=== PATIENT | female | born 1950 | race African-American/Black ===

== ENCOUNTER → 2018-12-04 | Outpatient (CLI) | payer BC ==
[~2018-12-04] MED LIST: ASPIR 8181 MG PO; COZAAR 25 MG TA25 M1 PO; PROTONIX40 M1 PO; SIMVASTATIN40 MG PO; TOPROL XL100 MG PO
--- NOTE | 2018-12-04 11:58 | 2DMMODE ---
[facility] [place] [address] 2 D/M-MODE ECHOCARDIOGRAM Name: DELON ISRAEL Room #: REG CL [facility]#: [id number] ������������� Admission: 12/04/18 ������������� Attend Phys: Jayy Cantu MD Discharge: ��� ������������� ��� Date of : 52 Date of Service: 12/04/18 1158 �� Report #: [id number] �������� ��������������������������������������������[id number] THIS REPORT FOR: //name// APPROVED REPORT Study performed: 12/04/2018 10:24:16 EXAM: Comprehensive 2D, Doppler, and color-flow Echocardiogram Patient Location: Out-Patient Room #: Echo lab 1 Status: routine BSA: 1.69 HR: 67 bpm BP: 212/88 mmHg Rhythm: NSR Other Information Study Quality: Adequate Indications Chest Pain 2D Dimensions IVC: 17.00 mm Volumes Left Atrial Volume (Systole) LA ESV Index: 32.00 mL/m2 Tricuspid Valve PA Pressure: 27.00 mmHg Left Ventricle The left ventricle is normal size. There is normal LV segmental wall motion. There is normal left ventricular wall thickness. The left ventricular systolic function is normal. The left ventricular ejection fraction is within the normal range. LVEF is 60-65%. Grade II - pseudonormal filling dynamics. Right Ventricle The right ventricle is normal size. The right ventricular systolic function is normal. Atria The left atrium size is normal. The right atrium size is [facility] [address] [place] [address] 2 D/M-MODE ECHOCARDIOGRAM Name: DELON ISRAEL Room #: REG Oswaldo#: [id number] ������������� Admission: 12/04/18 ������������� Attend Phys: Jayy Cantu MD Discharge: ��� ������������� ��� Date of : 52 Date of Service: 12/04/18 1158 �� Report #: [id number] �������� ��������������������������������������������[id number] normal. Aortic Valve The aortic valve is normal in structure. No aortic regurgitation is present. There is no aortic valvular stenosis. Mitral Valve The mitral valve is normal in structure. Moderate mitral regurgitation. No evidence of mitral valve stenosis. Tricuspid Valve The tricuspid valve is normal in structure. There is mild tricuspid regurgitation. Estimated PAP 27 mmHg. There is no pulmonary hypertension. Pulmonic Valve The pulmonary valve is normal in structure. There is no pulmonic valvular regurgitation. Great Vessels The aortic root is normal in size. IVC is normal in size and collapses >50% with inspiration. Pericardium There is no pericardial effusion. <Conclusion> The left ventricle is normal size. There is normal left ventricular wall thickness. The left ventricular systolic function is normal. Grade II - pseudonormal filling dynamics. The right ventricle is normal size. The left atrium size is normal. The aortic valve is normal in structure. Moderate mitral regurgitation. There is mild tricuspid regurgitation. Estimated PAP 27 mmHg. ��������������������������������������������� <ELECTRONICALLY SIGNED> ���������������������������������������� By: Jayy Cantu MD ��������������������������������������������� 12/04/18 1158 1158 1158 Jayy Cantu MD /INF
== END ==
LOC: CV 06:31
DX: I08.1 Rheumatic disorders of both mitral and tricuspid valves (principal); I99.8 Other disorder of circulatory system; I10 Essential (primary) hypertension; E78.5 Hyperlipidemia, unspecified; Z86.73 Personal history of transient ischemic attack (TIA), and cerebral infarction without residual deficits

== ENCOUNTER 2018-12-06 05:36 | Observation (INO) | payer BC ==
[~2018-12-06] VITALS: Ht 152.4 cm; Wt 73.5 kg
[2018-12-06] MEDS ORDERED: COZAAR 25 MG TA25 M1 PO (07:06)
[2018-12-06] MEDS ORDERED: TOPROL XL100 MG PO (07:06)
[2018-12-06] MEDS ORDERED: PROTONIX40 M1 PO (07:06)
[2018-12-06] MEDS ORDERED: SIMVASTATIN40 MG PO (07:07)
[2018-12-06] MEDS ORDERED: ASPIR 8181 MG PO (07:07)
[2018-12-06 07:08] VITALS: BP 183/84
[2018-12-06 07:13] LABS: HEMATOCRIT 37.5 % (37.0-47.0); HEMOGLOBIN 11.7 gm/dL (12.0-15.0); MCHC 31.3 g/dL (28.0-37.0); MCV 73.3 fL (80.0-100.0); RBC 5.11 mil/uL (4.20-5.00); RDW 15.5 % (10.5-14.5); WBC 5.9 thou/uL (4.0-11.0)
[2018-12-06 07:24] LABS: CALCIUM 9.2 mg/dL (8.5-10.1); CREATININE 0.9 mg/dL (0.6-1.0); POTASSIUM 4.2 mmol/L (3.5-5.1)
--- NOTE | 2018-12-06 08:22 | EKG ---
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: Syd OLVERA : 1950 Requested By: Jayy Cantu Order Number: [id number] MD: Pasquale Nogueira Measurements Intervals [place] Rate: 55 P: 41 UT: 194 QRS: 7 QRSD: 92 T: 50 QT: 463 QTc: 443 Interpretive Statements Sinus rhythm Abnormal R-wave progression, early transition No previous ECG available for comparison Electronically Signed On 12-06-2018 8:22:35 CDT by Pasquale Nogueira [email or web address] ��������������������������������������������� <ELECTRONICALLY SIGNED> ���������������������������������������� By: Pasquale Nogueira MD, [facility] ��������������������������������������������� 12/06/18821 2 2 Pasquale Nogueira MD, FACC /EPI
--- NOTE | 2018-12-06 12:20 | CATHLAB ---
[facility] [address] [place] [address] INVASIVE PROCEDURE REPORT Name: DELON ISRAEL Room #: REG CHITO ChaconReji#: [id number] ������������� Admission: 12/06/18 ������������� Attend Phys: Jayy Cantu MD Discharge: ��� ������������� ��� Date of : 52 Date of Service: 12/06/18 1220 �� Report #: [id number] �������� ��������������������������������������������[id number] THIS REPORT FOR: //name// APPROVED REPORT Study performed: 12/06/2018 07:39:09 Patient Details Patient Status: Out-Patient Room #: The patient is a 68 year-old female Event Personnel Jayy Cantu Vessel Specialist, Mesfin Cummings RN RN, Derrick Musa RTR Jose G Mallory Roberta Monitor Procedures Performed Art Access - R femoral artery* Left Heart Cath w/LT VGram [id number] LHCLV 36003 Initial Mod Sed Same Phys/QHP Gr5y 409348 94445 Mod Sed Same Phys/QHP Ea 622526 DARRIN Place w/wo Plasty Single CIRC 733415 Hemostasis w/ Mynx Indication Positive stress test, Chest pain Risk Factors Cerebrovascular Disease, Hypercholesterolemia, Hypertension, Diabetes Procedure Narrative The Right Groin^ was infiltrated with subcutaneous anesthesia. A PINNACLE 4FR Sheath #[id number] sheath was inserted into the RFA 4F^. Coronary angiography was performed using coronary diagnostic catheters. The right coronary system was accessed and visualized with a JR4 catheter. The left coronary system was accessed and visualized with a JL4 catheter. The left ventricle was accessed and visualized with a ANGLE PIG catheter. Left ventriculogram was performed in 30 degree projection. Closure device was deployed with a Fr MYNXGRIP 6/7F #[id number]. There was no hematoma. Intraoperative Conscious Sedation Sedation start time: 819 Case end Time: 914 Fentanyl 100 mcg Versed 2 mg Fluoro Time: 10.50 minutes Dose: DAP 7139.00 cGycm2 1733 mGy [facility] [place] [address] INVASIVE PROCEDURE REPORT Name: DELON ISRAEL Room #: REG [facility]#: [id number] ������������� Admission: 12/06/18 ������������� Attend Phys: Jayy Cantu MD Discharge: ��� ������������� ��� Date of : 52 Date of Service: 12/06/18 1220 �� Report #: [id number] �������� ��������������������������������������������[id number] Contrast Type and Amount: Omnipaque 165 ml Coronary Angiography The patient's coronary anatomy is right dominant. Diagnostic Cath Left Main This is a large caliber vessel, patent with no flow-limiting lesions. LAD This is a moderate size caliber vessel, traversing the anterior wall and wrapping around the apex. There is mild to moderate diffuse disease in the mid segment, 30-40%. Diagonal 1 This is a small-caliber vessel, patent with no flow-limiting lesions. Diagonal 2 This is a small-caliber vessel, patent with no flow-limiting lesions. Circumflex There is a severe stenosis in the proximal segment, 90%. OM1 This is a moderate size caliber vessel, with a moderate stenosis in the proximal segment, 40%. OM2 This is a small-caliber vessel, patent with no flow-limiting lesions. OM3 This is a small-caliber vessel, patent with no flow-limiting lesions. Right Coronary This is a dominant vessel with mild disease in the mid segment, 20%. R PDA This is a moderate size caliber vessel, patent with no flow-limiting lesions. RPLV This is a moderate size caliber vessel, patent with no flow-limiting lesions. Left Ventriculography The left ventricle is normal in size with normal contractility. The left ventricular ejection fraction is estimated to be 60%. Hemodynamics The aortic pressure is 179/78 mmHg with a mean of 85 mmHg. The left ventricular pressure is 169/10 mmHg with a mean of mmHg. The left ventricular end diastolic pressure is 27 mmHg. PCI Technique Lesion Percutaneous coronary intervention was performed on the .CIRC. The lesion stenosis prior to intervention was 90% with HETAL 3 flow. A VISTA 6FR XB 3.5 #[id number] Guide Catheter was used to engage the ostium. A Luge Wire .014 x 182CM #[id number] Interventional Guidewire was used to cross the lesion. [facility] [address] [place] [address] INVASIVE PROCEDURE REPORT Name: DELON ISRAEL Room #: REG Geovani#: [id number] ������������� Admission: 12/06/18 ������������� Attend Phys: Jayy Cantu MD Discharge: ��� ������������� ��� Date of : 52 Date of Service: 12/06/18 1220 �� Report #: [id number] �������� ��������������������������������������������[id number] BALLOON DILATION A Balloon catheter MINI TREK RX 2.0 X 12 #[id number] was inserted and inflated up to 8.00atm for 16seconds. STENT DEPLOYMENT A stent RESOLUTE KATARINA RX 2.5 X 12 #[id number] was inserted and inflated up to 12.00atm for 26seconds. POST STENT DEPLOYMENT BALLOON DILATION A Balloon catheter Euphora NC RX 2.5 x 6 #[id number] was inserted and inflated up to 15.00atm for 20seconds. Additional Inflation: 18.00atm for 17seconds. Final angiography reveals 0 % stenosis with HETAL 3 flow. Conclusion 1. Successful insertion of a drug-eluting stent into the proximal left circumflex artery. 2. Mild to moderate disease in the LAD and OM1. 3. Normal LV systolic function. 4. Recommend dual antiplatelet therapy and aggressive risk factor management. ��������������������������������������������� <ELECTRONICALLY SIGNED> ���������������������������������������� By: Jayy Cantu MD ��������������������������������������������� 12/06/18 1220 19 19 Jayy Cantu MD /INF
--- NOTE | 2018-12-06 18:34 | NUR ---
PATIENT TO UNIT FROM CIGARETTE AND FILTER CHIEF INSPECTOR BY CART, REPORT FROM BEVERLEY HODGE. VSS. NSR PER TELE. NO COMPLAINTS. RIGHT GROIN SITE CDI, SOFT, AND NONTENDER. MULTIPLE FAMILY AT BEDSIDE. PATIENT HAS BEEN IN HOLDING ALL DAY. REPORT TO ONCOMING NIGHT NURSE BEVERLEY KOWALSKI.
[2018-12-06 18:50] VITALS: BP 170/63
[2018-12-06 20:30] VITALS: BP 189/86
[2018-12-07 00:45] VITALS: BP 168/81
[2018-12-07 04:45] VITALS: BP 179/66
--- NOTE | 2018-12-07 04:57 | NUR ---
ASSUMED PT CARE AT 1900 WITH NO SIGN OF DISTRESS NOTED IN PT. PT IS ALERT AND ORIENTED. FAMILY AT BEDSIDE. PT HAD A CATH DONE. RIGHT GROIN SITE INTACT. VITAL SIGNS STABLE. ELEVATED BLOOD PRESUURE NOTED. MEDICATION ADMINISTERED TO PT. ASSESSMENT COMPLETED AND DOCUMENTED. PT STABLE THROUGHOUT THE NIGHT. DENIES ANY PAIN. CONTINUE TO MONITOR
[2018-12-07 05:33] LABS: HEMOGLOBIN 11.4 gm/dL (12.0-15.0); MCH 22.9 pg (26.0-34.0); MCHC 31.6 g/dL (28.0-37.0); MCV 72.5 fL (80.0-100.0); RBC 4.97 mil/uL (4.20-5.00); RDW 15.2 % (10.5-14.5); WBC 6.9 thou/uL (4.0-11.0)
[2018-12-07 05:45] LABS: ALBUMIN 3.6 g/dL (3.4-5.0); CALCIUM 9.1 mg/dL (8.5-10.1); CREATININE 0.9 mg/dL (0.6-1.0); POTASSIUM 3.8 mmol/L (3.5-5.1); TOTAL BILIRUBIN 0.2 mg/dL (<0.1-1.0); TOTAL PROTEIN 7.1 g/dL (6.4-8.2)
[2018-12-07] MEDS ORDERED: EFFIENT10 MG PO (08:07)
[2018-12-07] MEDS ORDERED: ATORVASTATIN CA80 MG PO (08:08)
[2018-12-07] MEDS ORDERED: TOPROL XL100 MG PO (08:11)
[2018-12-07 08:22] VITALS: BP 169/59
--- NOTE | 2018-12-07 08:38 | EKG ---
[address] [place] [address] ELECTROCARDIOGRAM REPORT Name: DELON ISRAEL Room #: 214-P [facility] M.R.#: [id number] ������������������ Admission: 12/06/18 ������������������ Attend Phys: Jayy Cantu MD Discharge: ������������������ Date of : 52 Report #: [id number] ����������������������������������������������������������������� [id number] THIS REPORT FOR: //name// [facility] Test Date: 2018-12-06 Test Time: 10:24:41 Pat Name: DELON ISRAEL Department: Room: 214 Gender: F Credit Card Specialist: Syd OLVERA : 1950 Requested By: Jayy Cantu Order Number: [id number] MD: Pasquale Nogueira Measurements Intervals [place] Rate: 56 P: 46 MS: 204 QRS: 13 QRSD: 93 T: 88 QT: 481 QTc: 465 Interpretive Statements Sinus rhythm Nonspecific ST and T wave abnormality Compared to ECG 12/06/2018 07:23:46 T-wave abnormality now present Electronically Signed On 12-07-2018 8:38:43 CDT by Pasquale Nogueira [email or web address] ��������������������������������������������� <ELECTRONICALLY SIGNED> ���������������������������������������� By: Pasquale Nogueira MD, [facility] ��������������������������������������������� 12/07/18 0838 1024 1024 Pasquale Nogueira MD, [facility] /EPI
--- NOTE | 2018-12-07 08:39 | EKG ---
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: Syd OLVERA : 1950 Requested By: Jayy Cantu Order Number: [id number] MD: Pasqulae Nogueira Measurements Intervals [place] Rate: 55 P: 41 [place]: 204 QRS: 7 QRSD: 89 T: 95 QT: 482 QTc: 461 Interpretive Statements Sinus rhythm Nonspecific ST and T wave abnormality Compared to ECG 12/06/2018 07:23:46 No significant change was found Electronically Signed On 12-07-2018 8:39:28 CDT by Pasquale Nogueira [email or web address] ��������������������������������������������� <ELECTRONICALLY SIGNED> ���������������������������������������� By: Pasquale Nogueira MD, [facility] ��������������������������������������������� 12/07/18 0839 1115 1115 Pasquale Nogueira MD, [facility] /EPI
--- NOTE | 2018-12-07 09:04 | EKG ---
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 : 1950 Requested By: Jayy Cantu Order Number: [id number] MD: Pasquale Nogueira Measurements Intervals [place] Rate: 60 P: 43 CT: 197 QRS: 6 QRSD: 87 T: 57 QT: 465 QTc: 465 Interpretive Statements Sinus rhythm Nonspecific ST segment abnormality Compared to ECG 12/06/2018 07:23:46 No significant changes Electronically Signed On 12-07-2018 9:04:09 CDT by Pasquale Nogueira [email or web address] ��������������������������������������������� <ELECTRONICALLY SIGNED> ���������������������������������������� By: Pasquale Nogueira MD, [facility] ��������������������������������������������� 12/07/18903 0739 8 Pasquale Nogueira MD, FACC /EPI
[2018-12-07 09:15] VITALS: BP 169/59
--- NOTE | 2018-12-07 10:20 | NUR ---
ASSESSMENT CHARTED - MEDS PER MAR - NO CO'S OF PAIN OR NASUEA. VENECIA DIET AND FLUIDS. UP AD RIKA IN ROOM. SEEN BY THE CARDIAC REHAB NURSE THIS AM. PT HOME - INSTRUCTION IN REAGARDS TO CARE/ FOLLOW UP / MEDS GIVEN TO PATIENT AND DAUGHTER - STATED UNDERSTANDING OF INSTRUCTION GIVEN. MONIOT AND IV REMOVED PRIOR TO D/C. NO CO'S AT TIME OF DISCHARGE.
--- NOTE | 2018-12-08 08:32 | D ---
[facility] [place] [address] DISCHARGE SUMMARY Name: DELON ISRAEL Room #: 214-P [facility] Maggie Olivo#: [id number] Admission: 12/06/18 ������������������ Attend Phys: Jayy Cantu MD Discharge: 12/07/18 ������������������ Date of : 52 Report #: [id number] THIS REPORT FOR: //name// CC: Janelle Cantu DATE OF SERVICE: 12/07/2018 FINAL DIAGNOSES: 1. Unstable angina, status post percutaneous coronary intervention. 2. Hypertension. 3. Hypercholesterolemia. 4. Borderline diabetes. 5. Gastroesophageal reflux disease. HOSPITAL COURSE: Please see the original H and P for full details. The patient presented with chest pain with exertion. She had an abnormal nuclear stress test. On cardiac catheterization, she was found to have a severe occlusion in the proximal left circumflex artery, undergoing placement of a drug-eluting stent. There was [id number] disease in the mid LAD, OM1 and RCA. She remained stable overnight and will be discharged home. Her pressure was elevated. The metoprolol dose was increased to 100 mg daily. DISCHARGE MEDICATIONS: She will continue on aspirin 81 mg, Protonix 40 mg daily, losartan 100 mg daily. New statin medication is atorvastatin 40 mg daily and Effient 10 mg daily. FOLLOWUP: She is given a followup appointment in a few weeks. ��������������������������������������������� <ELECTRONICALLY SIGNED> ���������������������������������������� By: Jayy Cantu MD ��������������������������������������������� 12/08/18 0832 0816 1226 MD maral Lu
== END 2018-12-07 09:37 | disposition home or self-care (01) ==
LOC: CATH 05:36 → 2N 18:35 → CATH 18:36 → ENTRNSPT 12-07 09:28 → EDTRNSPTSTS 12-07 09:30 → 2N 12-07 09:37
PROVIDERS: ADMIT Internal Medicine Cardiovascular Disease
DX: I25.110 Atherosclerotic heart disease of native coronary artery with unstable angina pectoris (principal); I10 Essential (primary) hypertension; E78.00 Pure hypercholesterolemia, unspecified; E11.9 Type 2 diabetes mellitus without complications; K21.9 Gastro-esophageal reflux disease without esophagitis; Z79.899 Other long term (current) drug therapy
CPT/HCPCS: 10081

== ENCOUNTER 2019-07-01 19:43 | Inpatient (IN) | payer BC, OTHER ==
[~2019-07-01] VITALS: Ht 152.4 cm; Wt 72.1 kg
[~2019-07-01 19:43] MED LIST changes: +ATORVASTATIN CA80 MG PO; +EFFIENT10 MG PO
[2019-07-01 19:48] VITALS: BP 238/114
[2019-07-01] MEDS ORDERED: IMDUR 30 MG TAB30 M1 PO (20:00)
[2019-07-01 20:07] LABS: ABSOLUTE NEUTROPHILS 2.7 thou/uL (1.4-8.2); BASOPHILS 0.8 % (0.0-2.0); EOSINOPHILS 1.7 % (0.0-3.0); HEMOGLOBIN 12.6 gm/dL (12.0-15.0); LYMPHOCYTES 44.8 % (24.0-44.0); MCHC 31.5 g/dL (28.0-37.0); MCV 72.8 fL (80.0-100.0); MONOCYTES 9.2 % (1.0-8.0); PLATELET COUNT 328 thou/uL (150-400); POLYS 43.5 % (36.0-66.0); RBC 5.49 mil/uL (4.20-5.00); RDW 15.6 % (10.5-14.5); WBC 6.1 thou/uL (4.0-11.0)
[2019-07-01 20:15] LABS: CALCIUM 9.9 mg/dL (8.5-10.1); CREATININE 0.9 mg/dL (0.6-1.0); POTASSIUM 3.3 mmol/L (3.5-5.1)
[2019-07-01 20:23] LABS: TROPONIN-I 0.19 ng/mL (<0.06)
[2019-07-01 20:43] LABS: HYPOCHROMASIA 1+; MICROCYTES 1+; PLATELET ESTIMATE NORMAL
--- NOTE | 2019-07-01 21:35 | NUR ---
PT C/O NAUSEA AND FEELING WEAK AND LIKE SHE WAS GOING TO PASS OUT. SBP DROPPED FROM 200S TO 140S AFTER STARTING NITRO GTT AT 10ML/HR. NOTIFIED DR FLOYD. NITRO GTT RATE CHANGED TO 2.5ML/HR PER . WILL CONTINUE TO MONITOR.
[2019-07-01 21:36] LABS: INR 1.1; PROTIME 10.8 Seconds (9.3-11.4)
--- NOTE | 2019-07-01 22:00 | NUR ---
PT STATES SHE IS FEELING BETTER NOW. DENIES ANY MORE N/V. STATES HER CHEST PAIN IS GONE. BP IMPROVING. NITRO GTT REMAINS AT 2.5ML/HR. HEPARIN GTT INFUSING PER PROTOCOL. WILL CALL REPORT TO FLOOR RN.
--- NOTE | 2019-07-01 22:09 | NUR ---
REPORT CALLED TO FLOOR RNSARAH.
[2019-07-01 22:15] VITALS: BP 173/75
[2019-07-01 22:33] LABS: CHOLESTEROL 179 mg/dL (<200); HDL CHOLESTEROL 62 mg/dL (>40); LDL CHOLESTEROL 102 mg/dL (<100); MAGNESIUM 1.8 mg/dL (1.8-2.4); TC:HDL 2.9 Ratio (Not establshd); TRIGLYCERIDE 77 mg/dL (<150); VLDL 15 mg/dL (<40)
[2019-07-01 22:45] LABS: SERUM ASSESSMENT Clear
[2019-07-01 23:08] VITALS: BP 181/97
[2019-07-02] VITALS (36 sets, daily range): BP systolic 101–163; BP diastolic 49–98
--- NOTE | 2019-07-02 05:50 | NUR ---
PT ADMITTED TO UNIT AROUND 2300. PT C/O CHEST PAIN. MORPHINE AND OXYGEN PROVIDED WITH PARTIAL RELIEF. PT STATES SOA ONLY OCCURS WITH EXERTION NASAL CANNULA PROVIDED. PT IS ABLE TO WALK TO BATHROOM WITH MINIMAL ASSISTANCE. PT ON NITRO AND HEPARIN DRIP THAT WERE BOTH STARTED IN EMERGENCY ROOM. PER PHYSICIAN NOTES PT WILL HAVE POSSIBLE PROCEDURE TOMORROW. PT IS AOX4. WILL CONTINUE TO UPDATE PHYSICIAN ON CHANGES THRU SHIFT.
--- NOTE | 2019-07-02 10:54 | NUR ---
PT TRANSFER FROM [address] [place] [address] AFTER HAVING A HEART CATH DRESSSING TO RIGHT GROIN IS DRY AND INTACT. ON 2 LITERS NASAL OXYGEN. KEEPING RIGHT LEG STRAIGH. SOME NAUSEA NOTED. VITALS ARE STABLE. DENIES ANY CHEST PAIN AT THIS TIME. REMAINS ON NITRO DRIP AND CARDENE DRIP AT THIS TIME IN THE ICU. SINUS BRADYCARDIA AT RATE OF 55 NOTED. WILL CONTINUE TO ASSESS AND MONITOR PER NURSING AT THIS TIME
[2019-07-02 10:57] LABS: CALCIUM 9.9 mg/dL (8.5-10.1); CREATININE 0.8 mg/dL (0.6-1.0); POTASSIUM 4.1 mmol/L (3.5-5.1)
[2019-07-02 11:03] LABS: ALBUMIN 4.4 g/dL (3.4-5.0); TOTAL BILIRUBIN 0.4 mg/dL (<0.1-1.0); TOTAL PROTEIN 8.5 g/dL (6.4-8.2)
--- NOTE | 2019-07-02 11:33 | NUR ---
Unable to sp with patient she was in procedure. Patient admits with CP. She resides at home with spouse. 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 Casemgt following and will attempt to sp with patient when in room. She has [email or web address] insurance.
--- NOTE | 2019-07-02 13:00 | 2DMMODE ---
[facility] [place] [address] 2 D/M-MODE ECHOCARDIOGRAM Name: DELON ISRAEL Room #: 249-P ADM IN M.R.#: [id number] Admission: 07/01/19 Attend Phys: Bakari Knutson MD Discharge: Date of : 52 Report #: [id number] THIS REPORT FOR: cc: Janelle Lester MD, Cora A. MD Park, Jin S. MD ~ APPROVED REPORT Study performed: 07/02/2019 11:25:04 EXAM: Comprehensive 2D, Doppler, and color-flow Echocardiogram Patient Location: ICU Room #: 249 Status: routine BSA: 1.69 HR: 56 bpm BP: 122/56 mmHg Rhythm: Bradycardia Other Information Study Quality: Good Indications Pre-Op Diabetes CAD Chest Pain Hypertension/HDD 2D Dimensions RVDd: 34.27 mm IVSd: 10.01 (7-11mm) LVOT Diam: 18.54 (18-24mm) LVDd: 41.78 mm PWd: 10.20 (7-11mm) Ascending Ao: 25.25 (22-36mm) LVDs: 29.57 (25-40mm) Aortic Root: 25.04 mm IVC: 12.00 mm Volumes Left Atrial Volume (Systole) Single Plane 4CH: 61.28 mL Single Plane 2CH: 39.56 mL LA ESV Index: 33.00 mL/m2 Aortic Valve AoV Peak Tucker.: 1.43 m/s [facility] [address] [place] [address] 2 D/M-MODE ECHOCARDIOGRAM Name: DELON ISRAEL Room #: 249-P [facility] IN M.R.#: [id number] Admission: 07/01/19 Attend Phys: Bakari Knutson, Discharge: Date of : 52 Report #: [id number] AO Peak Gr.: 8.24 mmHg LVOT Max P.60 mmHg LVOT Max V: 1.07 m/s ERIC Vmax: 2.02 cm2 Mitral Valve E/A Ratio: 1.3 MV Decel. Time: 263.04 ms MV E Max Tucker.: 1.17 m/s MV A Tucker.: 0.89 m/s MV PHT: 76.28 ms IVRT: 69.20 ms Pulmonary Valve PV Peak Tucker.: 1.05 m/s PV Peak Gr.: 4.42 mmHg Pulmonary Vein P Vein S: 0.64 m/s P Vein A: 0.26 m/s P Vein D: 0.49 m/s P Vein A Dur.: 96.9 msec P Vein S/D Ratio: 1.31 Tricuspid Valve TR Peak Tucker.: 3.10 m/s TR Peak Gr.: 38.33 mmHg PA Pressure: 43.00 mmHg Left Ventricle The left ventricle is normal size. There is normal LV segmental wall motion. There is normal left ventricular wall thickness. The left ventricular systolic function is normal. The left ventricular ejection fraction is within the normal range. LVEF is 55-60%. Moderate diastolic dysfunction is present (pseudonormal filling). Right Ventricle The right ventricle is normal size. The right ventricular systolic function is normal. Atria Left atrium is at the upper limits of normal. Right atrium is at the upper limits of normal. Aortic Valve The aortic valve is normal in structure. No aortic regurgitation is present. There is no aortic valvular stenosis. Mitral Valve [facility] [place] [place] [address] 2 D/M-MODE ECHOCARDIOGRAM Name: DELON ISRAEL Room #: 249-P ADM IN M.R.#: [id number] Admission: 07/01/19 Attend Phys: Bakari Knutson, Discharge: Date of : 52 Report #: [id number] The mitral valve is normal in structure. Mild to moderate mitral regurgitation. No evidence of mitral valve stenosis. Tricuspid Valve The tricuspid valve is normal in structure. There is mild tricuspid regurgitation. Estimated PAP 43 mmHg. There is moderate pulmonary hypertension. Pulmonic Valve The pulmonary valve is normal in structure. There is no pulmonic valvular regurgitation. Great Vessels The aortic root is normal in size. IVC is normal in size and collapses >50% with inspiration. Pericardium There is no pericardial effusion. <Conclusion> The left ventricle is normal size. There is normal left ventricular wall thickness. The left ventricular systolic function is normal. Moderate diastolic dysfunction is present (pseudonormal filling). The right ventricle is normal size. Left atrium is at the upper limits of normal. The aortic valve is normal in structure. Mild to moderate mitral regurgitation. There is mild tricuspid regurgitation. Estimated PAP 43 mmHg. There is moderate pulmonary hypertension. <ELECTRONICALLY SIGNED> By: Jayy Cantu MD 07/02/19 1259 1259 1259 Jayy Cantu MD /INF
--- NOTE | 2019-07-02 14:15 | CATHLAB ---
[facility] [place] [place] [address] INVASIVE PROCEDURE REPORT Name: DELON ISRAEL Room #: 249-P ADM IN M.R.#: [id number] Admission: 07/01/19 Attend Phys: Bakari Knutson MD Discharge: Date of : 52 Report #: [id number] THIS REPORT FOR: cc: Janelle Lester MD, Cora A. MD Park, Jin S. MD ~ APPROVED REPORT Study performed: 07/02/2019 08:45:59 Patient Details Patient Status: In-Patient Room #: The patient is a 68 year-old female Event Personnel Jayy Cantu Electronic Gluer, Lyndsey Alonso CVT Monitor, Joleen Nicole RN RN, Lisseth Elizabeth Scrub Procedures Performed Left Heart Cath w/or w/o Coronaries [id number] [facility] Hemostasis with Manual pressure Indication Non-STEMI , Dyspnea, Chest pain Risk Factors HypercholesterolemiaPhysical Activity, Coronary Artery DiseaseHypertension, Diabetes Previous Procedures/Diagnoses Previous PCI Procedure Narrative The Right Groin^ was infiltrated with 1% Lidocaine subcutaneous anesthesia. A PINNACLE 4FR Sheath #[id number] sheath was inserted into the RFA. Coronary angiography was performed using coronary diagnostic catheters. The right coronary system was accessed and visualized with a JR4 catheter. The left coronary system was accessed and visualized with a JL4 catheter. The left ventricle was accessed and visualized with a angled pigtail catheter. Left ventricular/Aortic Valve gradient assessed via catheter pullback. Left ventriculogram was performed in 30 degree projection. Hemostasis was obtained with manual pressure following sheath removal without any complications. The patient tolerated the procedure well and there were no [facility] [address] [place] [address] INVASIVE PROCEDURE REPORT Name: DELON ISRAEL Room #: 249-P ADM IN .R.#: [id number] Admission: 07/01/19 Attend Phys: Bakari Knutson, Discharge: Date of : 51 Report #: [id number] complications associated with the procedure. There was no hematoma. Intraoperative Conscious Sedation No conscious sedation was used. Fluoro Time: 3.40 minutes Dose: DAP 3884.00 cGycm2 1069 mGy Contrast Type and Amount: Omnipaque 165 ml Coronary Angiography The patient's coronary anatomy is right dominant. Diagnostic Cath Left Main The left main artery is a large-caliber vessel, patent with no flow-limiting lesions. LAD The LAD is a moderate size caliber vessel, traversing the anterior wall and wrapping around the apex. There is a severe stenosis in the mid segment, 70%. Diagonal 1 This is a small to moderate size caliber vessel, with mild disease proximally. Diagonal 2 This is a small to moderate size caliber vessel, with mild disease proximally. Circumflex There is a severe, restenotic lesion in the proximal segment, 95-99%. There is HETAL 2 blood flow down the branches. OM1 The is a moderate size caliber vessel, patent with no flow-limiting lesions. OM2 This is a small to moderate size caliber vessel, with mild disease proximally. Right Coronary The RCA is a dominant vessel, with mild disease in the mid segment, 30%. R PDA This is a patent vessel, with no flow-limiting lesions. RPLV This is a patent vessel, with no flow-limiting lesions. Left Ventriculography The left ventricle is normal in size with normal contractility. The left ventricular ejection fraction is estimated to be 55-60%. Hemodynamics The aortic pressure is 188/90 mmHg with a mean of 129 mmHg. The left ventricular pressure is 178/21 mmHg with a mean of mmHg. The left ventricular end diastolic pressure is 41 mmHg. [facility] [address] [place] [address] INVASIVE PROCEDURE REPORT Name: DELON ISRAEL Room #: 249-P [facility] IN .R.#: [id number] Admission: 07/01/19 Attend Phys: Bakari Knutson, Discharge: Date of : 51 Report #: [id number] Conclusion 1. Severe 2 vessel disease, including a severe restenotic lesion in the proximal left circumflex artery stent. 2. Normal LV systolic function. 3. Recommend CV surgical consultation. <ELECTRONICALLY SIGNED> By: Jayy Cantu MD 07/02/19 1413 1413 1413 Jayy Cantu MD /INF
[2019-07-02 14:22] LABS: URINE BILIRUBIN NEGATIVE (Negative); URINE BLOOD NEGATIVE (Negative); URINE CLARITY CLEAR; URINE COLOR YELLOW; URINE GLUCOSE-RANDOM* NEGATIVE (Negative); URINE KETONES NEGATIVE (Negative); URINE LEUKOCYTES-REFLEX NEGATIVE (Negative); URINE NITRITE-REFLEX NEGATIVE (Negative); URINE PROTEIN (DIPSTICK) NEGATIVE (Negative); URINE UROBILINOGEN 0.2 E.U./dl (0.2-1.0)
[2019-07-02 16:01] LABS: ABSOLUTE NEUTROPHILS 8.1 thou/uL (1.4-8.2); BASOPHILS 0.4 % (0.0-2.0); HEMOGLOBIN 12.5 gm/dL (12.0-15.0); MCH 22.9 pg (26.0-34.0); MCHC 31.4 g/dL (28.0-37.0); MCV 72.9 fL (80.0-100.0); MONOCYTES 4.9 % (1.0-8.0); PLATELET COUNT 294 thou/uL (150-400); POLYS 81.7 % (36.0-66.0); RBC 5.48 mil/uL (4.20-5.00); RDW 15.6 % (10.5-14.5); WBC 9.9 thou/uL (4.0-11.0)
--- NOTE | 2019-07-02 16:08 | NUR ---
PT IS ALERT AND ORIENTED X4. LUNGS ARE CLEAR TO DIMINISHED. ON 2 LITERS NASAL CANULA. CARDIAC CATH DONE. RIGHT GROIN SITED DRY AND INTACT. DENIES ANY CHEST PAIN AT THIS TIME. SCDS ON BILATERAL. REMAINS ON HEPARIN DRIP. SOME NAUSEA NOTED TODAY. DRY HEAVES. TEST DIAGNOSTIC AND LABS COLLECTED TODAY. IV TEAM PLACED MIDLINE TODAY. DR. COBOS TALKED WITH PT ABOUT CABG FOR TOMORROW. WILL DO BATH DONE PRIOR TO SHIFT ENDING. NO CONCERNS OR ISSUES NOTED.
[2019-07-02 16:29] LABS: ANISOCYTOSIS 1+; MICROCYTES 1+
--- NOTE | 2019-07-02 18:04 | NUR ---
MIDLINE PLACED FOR HEPARIN GTT FOR OPEN HEART TOMORROW. PT VERY ANXIOUS AND NOT WANTING HAVE MORE THAN ONE STICK FOR LINE. SHAYLEE WITH SMALL VESSELS WRAPPED AROUND THE MEDIAN NERVE, LUABRACHIAL USED. LINE PLACED WITH NO COMPLICATIONS AND LABS DRAWN. PT HAS ANOTHER PIV IN PLACE. IF PT WOULD ALLOW I WOULD PLACE AN ADDITIONAL PIV.
[2019-07-03] VITALS (27 sets, daily range): BP systolic 118–161; BP diastolic 56–80
[2019-07-03 00:07] LABS: GLYCOHEMOGLOBIN (HGB A1C) 5.9 % (4.8-5.6)
[2019-07-03 01:07] LABS: GLYCOHEMOGLOBIN (HGB A1C) 5.8 % (4.8-5.6)
[2019-07-03 06:26] LABS: HEMATOCRIT 37.2 % (37.0-47.0); HEMOGLOBIN 12.3 gm/dL (12.0-15.0); MCH 23.9 pg (26.0-34.0); MCHC 33.1 g/dL (28.0-37.0); MCV 72.2 fL (80.0-100.0); RBC 5.15 mil/uL (4.20-5.00); RDW 15.3 % (10.5-14.5); WBC 8.9 thou/uL (4.0-11.0)
--- NOTE | 2019-07-03 06:49 | NUR ---
PATIENT TRANSFERRED TO ICU POST CARDIAC CATH. WILL AWAIT NEW ORDERS ONCE PATIENT IS MEDIALLY STABLE.
--- NOTE | 2019-07-03 07:11 | NUR ---
PT ALERT AND ORIENTED X4. PT RECEIVED BATH PRIOR TO BEING TAKEN TO SURGERY. PT SR ON THE MONITOR. AT 0605 WHILE TALKING ON THE PHONE TO HER SISTER PT VERBALIZE THAT SHE FELT CHEST PAIN/PRESSURE RATED THE PAIN 2/10. PT WAS RESTARTED ON NITROGLYCERIN. REPORT GIVEN TO GROUNDSKEEPING MAINTENANCE WORKER AT 0610. PT GIVEN BATH THIS AM. METROPOLOL GIVEN PRIOR TO PT LEAVING TO OR.
--- NOTE | 2019-07-03 08:42 | NUR ---
PT TRANSFERRED TO ICU S/P CARDIAC CATH WITH PLANS FOR SURGICAL INTERVENTION. PLEASE RE-ORDER P.T. WHEN PT IS STABLE AND APPROPRIATE FOR THERAPEUTIC INTERVENTIONS.
--- NOTE | 2019-07-03 10:34 | NUR ---
ASYSTOLE. DR. HAAS CALLED TO PRONOUNCE PT.
--- NOTE | 2019-07-03 11:20 | NUR ---
pt going to heart surgery (cabg) today. will cont following as needed for dc needs.
[2019-07-03 11:30] LABS: MCH 23.7 pg (26.0-34.0); WBC 7.6 thou/uL (4.0-11.0)
[2019-07-03 11:31] LABS: HEMATOCRIT 20.4 % (37.0-47.0); MCHC 32.4 g/dL (28.0-37.0); MCV 73.1 fL (80.0-100.0); RBC 2.79 mil/uL (4.20-5.00); RDW 15.4 % (10.5-14.5)
[2019-07-03 11:37] LABS: HEMOGLOBIN 6.6 gm/dL (12.0-15.0)
[2019-07-03 11:48] LABS: FIBRINOGEN 170.8 mg/dL (210-360); INR 1.6; PROTIME 16.6 Seconds (9.3-11.4)
[2019-07-03 11:50] LABS: APTT 34.8 Seconds (24.5-32.8)
[2019-07-03 12:01] LABS: POC BE 7 mmol/L (-2.0 to +3.0); POC CA IONIZED 4.3 mg/dL (4.5-5.3); POC GLUCOSE 115 mg/dL (70-99); POC HCO3 29.5 mmol/L (22.0-26.0); POC HEMOGLOBIN 10.9 g/dL (12.0-15.0); POC POTASSIUM 3.5 mmol/L (3.5-5.1); POC SODIUM 139 mmol/L (136-145); POC pCO2 34.5 mmHg (35.0-45.0)
[2019-07-03 12:01] LABS: POC BE 3 mmol/L (-2.0 to +3.0); POC CA IONIZED 3.9 mg/dL (4.5-5.3); POC GLUCOSE 144 mg/dL (70-99); POC HCO3 26.5 mmol/L (22.0-26.0); POC HEMOGLOBIN 7.8 g/dL (12.0-15.0); POC POTASSIUM 3.4 mmol/L (3.5-5.1); POC SODIUM 138 mmol/L (136-145); POC pCO2 34.4 mmHg (35.0-45.0); POC pH 7.494 (7.360-7.450)
[2019-07-03 12:02] LABS: POC BE -1 mmol/L (-2.0 to +3.0); POC CA IONIZED 4.4 mg/dL (4.5-5.3); POC GLUCOSE 106 mg/dL (70-99); POC HCO3 23.3 mmol/L (22.0-26.0); POC HEMOGLOBIN 9.2 g/dL (12.0-15.0); POC POTASSIUM 3.2 mmol/L (3.5-5.1); POC SODIUM 141 mmol/L (136-145); POC pCO2 33.6 mmHg (35.0-45.0); POC pH 7.449 (7.360-7.450)
[2019-07-03 12:02] LABS: POC BE 3 mmol/L (-2.0 to +3.0); POC CA IONIZED 3.7 mg/dL (4.5-5.3); POC GLUCOSE 145 mg/dL (70-99); POC HCO3 25.4 mmol/L (22.0-26.0); POC HEMOGLOBIN 8.5 g/dL (12.0-15.0); POC POTASSIUM 3.7 mmol/L (3.5-5.1); POC SODIUM 136 mmol/L (136-145); POC pCO2 30.8 mmHg (35.0-45.0); POC pH 7.525 (7.360-7.450)
[2019-07-03 12:02] LABS: POC BE 1 mmol/L (-2.0 to +3.0); POC CA IONIZED 4.8 mg/dL (4.5-5.3); POC GLUCOSE 127 mg/dL (70-99); POC HCO3 25.4 mmol/L (22.0-26.0); POC HEMOGLOBIN 6.8 g/dL (12.0-15.0); POC POTASSIUM 3.2 mmol/L (3.5-5.1); POC SODIUM 138 mmol/L (136-145); POC pCO2 37.7 mmHg (35.0-45.0); POC pH 7.435 (7.360-7.450)
[2019-07-03 12:02] LABS: POC BE 3 mmol/L (-2.0 to +3.0); POC CA IONIZED 4.4 mg/dL (4.5-5.3); POC GLUCOSE 155 mg/dL (70-99); POC HCO3 26.2 mmol/L (22.0-26.0); POC HEMOGLOBIN 11.2 g/dL (12.0-15.0); POC POTASSIUM 3.3 mmol/L (3.5-5.1); POC SODIUM 138 mmol/L (136-145); POC pCO2 35.5 mmHg (35.0-45.0); POC pH 7.476 (7.360-7.450)
--- NOTE | 2019-07-03 12:13 | HC ---
[facility] [place] [address] [place] [address] CONSULTATION Name: DELON ISRAEL Room #: 249-P ADM IN M.R.#: [id number] Admission: 07/01/19 Attend Phys: Roberto Carlos Downs MD Discharge: Date of : 51 Report #: [id number] THIS REPORT FOR: cc: Janelle Lester MD,Jamie Albert MD, MD ~ CC: Janelle Knutson DATE OF SERVICE: 07/02/2019 We were asked to see the patient by Dr. Cantu. HISTORY OF PRESENT ILLNESS: The patient is a 68-year-old with coronary artery disease. The patient presented yesterday with chest pain. Symptoms began approximately 1 week ago and became worse yesterday. The patient described the pain as midline and under the left breast with aggravating factors including eating and exertion, some shortness of breath associated with it. The patient has a history of coronary artery disease and had a stent placed for a tight circumflex lesion approximately 6 months ago. The patient states that she had been taking Effient until house cleaning in April when the Effient was disposed of and she has not been on that medication since. Cardiac catheterization today shows a tight circumflex marginal stenosis at least 95% and 80% LAD stenosis. Left ventricular function is satisfactory. Right coronary has trivial disease. PAST MEDICAL HISTORY: Hypertension and hypercholesterolemia. The patient's history states there is a CVA in the past, but no significant residual. The patient also has been treated for acid reflux and insulin resistance. CURRENT MEDICATIONS: At home includes atorvastatin and metoprolol. As mentioned, the patient had been prescribed Effient, but has not taken it for a month or so. ALLERGIES: None known. FAMILY HISTORY: Not contributory. Mother is with a history of COPD. Father of old age. SOCIAL HISTORY: Denies tobacco use. REVIEW OF SYSTEMS: GENERAL: The patient denies fever. Generalized fatigue. EYES: No vision changes. [facility] [address] [place] [address] CONSULTATION Name: DELON ISRAEL Room #: 249-P [facility] IN M.R.#: [id number] Admission: 07/01/19 Attend Phys: Roberto Carlos Downs MD Discharge: Date of : 51 Report #: [id number] HENT: No headache, no nasal drainage. No earache. RESPIRATORY: Some shortness of breath associated with the chest pain. Denies cough or hemoptysis. CARDIAC: As mentioned, unstable angina, chest pain on rest that has been increasing. No palpitations. GASTROINTESTINAL: No nausea, vomiting, diarrhea, or blood. GENITOURINARY: No burning, frequency, urgency or blood. MUSCULOSKELETAL: Denies back pain, bone and joint pain. SKIN: Denies rash or infection. NEUROLOGIC: Denies motor or sensory dysfunction. PHYSICAL EXAMINATION: GENERAL: The patient is lying in bed, status post cardiac catheterization. VITAL SIGNS: Temperature 36.5, heart rate 71, blood pressure 101/62, respiratory rate 18, oxygen saturation 97% on 2 liters. HEENT: No scleral icterus, no arcus. NECK: No mass, no bruit. CHEST: Clear to auscultation. HEART: Rhythm regular, no murmur. ABDOMEN: Soft. No mass or tenderness. EXTREMITIES: No clubbing, cyanosis or edema. SKIN: No rash or infection. VASCULAR: 2+ dorsalis pedis pulses bilaterally. No obvious saphenous vein problems. NEUROLOGIC: No motor or sensory dysfunction seen. MUSCULOSKELETAL: No bone or joint asymmetry or deformity. I reviewed the cardiac anatomy with the patient and have recommended coronary artery bypass surgery in accordance with the findings. Risks and details of surgery were discussed. These include but are not limited to bleeding, infection, anesthesia risks, heart and lung problems, stroke and . Options and alternatives were reviewed. The patient understands all of this and she wishes to proceed. We will try to arrange surgery for tomorrow morning. Thank you for your consult. <ELECTRONICALLY SIGNED> By: Jamie Burleson MD 07/03/19 1213 1151 1251 Jamie Burleson MD /nt
--- NOTE | 2019-07-03 12:45 | NUR ---
1245--- PT ARRIVED FROM OR. RECOVERING IN ROOM. CURRENTLY ON CARDENE AT 15MG/HR. DIPRIVAN AT 50MCG/KG/MIN. JACKY HUGGER ON. DR. COBOS AND MEAGHAN LIAISON INSPECTION LABORATORY ASSISTANT HERE. 1335 FFP UP. KCL UP 1345 DR COBOS HERE. FFP INFUSED 1400 JACKY HUGGER OFF. SEE VS FOR GTT TITRATIONS 1430 PT WAKING UP FOLLOWS ALL COMMANDS BUT WEAK LH. FALLS RIGHT BACK TO SLEEP WHEN NOT STIMULATED 1445 BLANKETS OFF. FAN ON PT FOR TEMP 37.4 1530 2ND BAG KCL STARTED. 1600 PT REMAINS SOMNLENT WHEN NOT STIMULATED BUT REPORTS PAIN UNBEARABLE. FENTANYL 25MCG IV GIVEN FOR HIGH HR AND BP. SEE MAR FOR TIME. 1700 HR 120 T 37.7 C. PT OTHERWISE STABLE ON CARDENE AT 10MG/HR. DR COBOS CALLED. ORDERS FOR IV TYLENOL GIVEN.
--- NOTE | 2019-07-03 12:49 | NUR ---
Nutrition: Pt scheduled for CABG today. Received consult, will followup and determine education needs when out of ICU/closer to D/C.
[2019-07-03 13:11] LABS: BE(vivo) -3.5 mmol/L (-2 to +3); HCO3 20.4 mmol/L (22.0-26.0); PCO2 32.8 mmHg (35.0-45.0); pH 7.411 (7.360-7.450); sO2 98.9 % (92.0-98.0)
[2019-07-03 13:11] LABS: HEMATOCRIT 33.6 % (37.0-47.0); MCH 23.2 pg (26.0-34.0); MCV 72.5 fL (80.0-100.0); RBC 4.63 mil/uL (4.20-5.00); RDW 15.2 % (10.5-14.5); WBC 14.8 thou/uL (4.0-11.0)
[2019-07-03 13:15] LABS: HEMOGLOBIN 10.7 gm/dL (12.0-15.0)
[2019-07-03 13:19] LABS: CREATININE 0.7 mg/dL (0.6-1.0); MAGNESIUM 2.3 mg/dL (1.8-2.4)
[2019-07-03 13:20] LABS: CALCIUM 7.9 mg/dL (8.5-10.1); POTASSIUM 2.9 mmol/L (3.5-5.1)
[2019-07-03 13:24] LABS: APTT 30.5 Seconds (24.5-32.8); INR 1.2
--- NOTE | 2019-07-03 16:10 | NUR ---
REPORTED TO DR. COBOS THAT SMALL AMT OF LELIA RED BLOOD IS COMING OUT OF OGT.
[2019-07-03 18:35] LABS: BE(vivo) -4.4 mmol/L (-2 to +3); HCO3 20.4 mmol/L (22.0-26.0); PCO2 36.7 mmHg (35.0-45.0); PO2 108.9 mmHg (80.0-100.0); pH 7.363 (7.360-7.450); sO2 97.9 % (92.0-98.0)
--- NOTE | 2019-07-03 19:13 | NUR ---
PT PROGRESSING TOWARDS GOALS. STARTING CPAP TRIAL.
[2019-07-03 19:16] LABS: BE(vivo) -5.9 mmol/L (-2 to +3); HCO3 18.9 mmol/L (22.0-26.0); PO2 109.3 mmHg (80.0-100.0); pH 7.351 (7.360-7.450); sO2 97.8 % (92.0-98.0)
[2019-07-03 22:25] LABS: BE(vivo) -4.5 mmol/L (-2 to +3); HCO3 21.2 mmol/L (22.0-26.0); PCO2 41.5 mmHg (35.0-45.0); PO2 85.1 mmHg (80.0-100.0); pH 7.327 (7.360-7.450); sO2 95.8 % (92.0-98.0)
[2019-07-04] VITALS (14 sets, daily range): BP systolic 113–170; BP diastolic 52–81
--- NOTE | 2019-07-04 00:58 | NUR ---
PT EXTUBATED AT 2034. PLACED ON FS .50. GOOD COUGH EFFORT. THICK OLD BLOOD TINGED SECRETIONS. LS DIMINISHED. IS UP TO 1.25L. FENTANYL GIVEN ORDERED FOR POST OP PAIN. HEMODYNAMICS WNL. UO HOURLY ADEQUATE. CT DRNG MINIMAL. CARDENE GTT AT 2.5MCG TO KEEP SBP <140. PT PROGRESSING TOWARD GOALS. SEE [facility] FOR ASSESSMENT. CONT PLAN OF CARE
[2019-07-04 07:15] LABS: HEMATOCRIT 29.7 % (37.0-47.0); HEMOGLOBIN 9.4 gm/dL (12.0-15.0); MCH 23.1 pg (26.0-34.0); MCHC 31.7 g/dL (28.0-37.0); MCV 72.9 fL (80.0-100.0); RBC 4.07 mil/uL (4.20-5.00); RDW 16.1 % (10.5-14.5); WBC 11.8 thou/uL (4.0-11.0)
[2019-07-04 07:33] LABS: CALCIUM 8.2 mg/dL (8.5-10.1); CREATININE 0.7 mg/dL (0.6-1.0); MAGNESIUM 2.3 mg/dL (1.8-2.4); POTASSIUM 3.9 mmol/L (3.5-5.1)
--- NOTE | 2019-07-04 09:33 | NUR ---
0645 AMIBENITOE AND MANNIE OFF THIS AM. PT BP LOW. CI 1.7. ALBUMIN INFUSING. DR COBOS AWARE. NO NEW ORDERS. ASSESSMENT UNCHANGED. HEMODYMAMICS AND BP IMPROVED WITH ALBUMIN. CONT PLAN OF CARE
--- NOTE | 2019-07-04 09:35 | EKG ---
[facility] [place] [place] [address] ELECTROCARDIOGRAM REPORT Name: DELON ISRAEL Room #: 249-P ADM IN M.R.#: [id number] Admission: 07/01/19 Attend Phys: Roberto Carlos Downs MD Discharge: Date of : 51 Report #: [id number] THIS REPORT FOR: cc: Janelle Lester MD, Cora A. MD Lundgren,Pasquale Calle MD [facility] ~ THIS REPORT FOR: //name// [facility] Test Date: 2019-07-04 Test Time: 08:50:51 Pat Name: DELON ISRAEL Department: Room: 249 P Gender: F Flight Operation Coordinator: Virginie ALFARO : 1950 Requested By: Jamie Burleson Order Number: [id number] MD: Pasquale Nogueira Measurements Intervals [place] Rate: 79 P: 33 NV: 152 QRS: 8 QRSD: 104 T: 66 QT: 374 QTc: 429 Interpretive Statements Sinus rhythm Abnormal R-wave progression, early transition Probable LVH with secondary repol abnrm Compared to ECG 07/03/2019 14:23:16 ST segment abnormality is less pronounced Electronically Signed On 07-04-2019 9:33:48 CDT by Pasquale Nogueira [email or web address] <ELECTRONICALLY SIGNED> By: Pasquale Nogueira MD, [facility] 07/04/19 0933 Pasquale Nogueira MD, [facility] /EPI
--- NOTE | 2019-07-04 13:27 | NUR ---
Pt is currently in the ICU s/p CABGx2 yesterday. The pt was evaluated by therapy today. She lives in a split level home with her sign other and has 7 steps to enter and 7 up to her bedroom. She was working and indep prior to admission. Her dtr Alcira is her emergency contact. Will follow along for possible hh referral at [facility] pending her progress.
--- NOTE | 2019-07-04 15:00 | NUR ---
DR. COBOS CALLED. RE SBP 150S ON CUFF AND ART LINE. ORDERS GIVEN.
--- NOTE | 2019-07-04 16:30 | NUR ---
DR. COBOS PAGED AGAIN RE SBP HIGH 160S AND 170S AT TIMES. CARDENE GTT RESTARTED.
[2019-07-05] VITALS (16 sets, daily range): BP systolic 113–150; BP diastolic 46–79
[2019-07-05 05:21] LABS: CALCIUM 8.5 mg/dL (8.5-10.1); CREATININE 0.8 mg/dL (0.6-1.0); POTASSIUM 4.4 mmol/L (3.5-5.1)
[2019-07-05 05:26] LABS: BE(vivo) 0.6 mmol/L (-2 to +3); PCO2 39.1 mmHg (35.0-45.0); PO2 86.9 mmHg (80.0-100.0); pH 7.423 (7.360-7.450); sO2 96.8 % (92.0-98.0)
--- NOTE | 2019-07-05 05:26 | NUR ---
NO OVERNIGHT EVENTS. CARDENE GTT OFF SINCE 2014 LAST NIGHT, AND MAINTAINING SBP<150. O2 TITRATED DOWN TO 2L AND O2 SAT AT 100%. PT C/O PAIN AT 2000 AND FENTANYL GIVEN, HYDROCODONE HAD BEEN GIVEN A FEW HOURS PRIOR. PT DENIED PAIN THE REMAINDER OF THE NIGHT. PT IS PROGRESSING TOWARDS GOALS. WILL CONTINUE TO MONITOR AND FOLLOW THE PLAN OF CARE.
[2019-07-05 05:38] LABS: HEMATOCRIT 25.7 % (37.0-47.0); HEMOGLOBIN 8.2 gm/dL (12.0-15.0); MCH 23.5 pg (26.0-34.0); MCHC 31.8 g/dL (28.0-37.0); MCV 73.7 fL (80.0-100.0); RBC 3.49 mil/uL (4.20-5.00); RDW 15.9 % (10.5-14.5); WBC 12.9 thou/uL (4.0-11.0)
--- NOTE | 2019-07-05 07:20 | NUR ---
splinting chest when getting up to standing scale and chair with 2 rn assist. denies discomfort, well tolerated. SR, encouraged taking deep breaths/cough x 10 while splinting chest, shallow cough effort, lungs diminished in devendra bases. pleural chest tube 25cc serous drainage. adequate urine output.
--- NOTE | 2019-07-05 10:00 | NUR ---
back to bed with one assist, well tolerated. sao2 pleth intermittently reading poorly, placed on 02 @ 1 L/nc.
--- NOTE | 2019-07-05 11:15 | NUR ---
pt up to chair, well tolerated. Dennis, Occupational Therapy present. pt bathed self.
--- NOTE | 2019-07-05 11:31 | NUR ---
discussed during los, possible dc out of icu today. will cont following as needed for dc needs.
--- NOTE | 2019-07-05 12:05 | NUR ---
report given to [facility] CCU [place]. Dr. Burleson to return to ICU, then remove PCT/pacing wires prior to CCU transfer.
[2019-07-05 12:20] LABS: HEMATOCRIT 25.8 % (37.0-47.0); HEMOGLOBIN 8.2 gm/dL (12.0-15.0); MCH 23.2 pg (26.0-34.0); MCHC 31.7 g/dL (28.0-37.0); RBC 3.53 mil/uL (4.20-5.00); RDW 15.8 % (10.5-14.5); WBC 14.3 thou/uL (4.0-11.0)
--- NOTE | 2019-07-05 14:30 | NUR ---
1315 back to bed, well tolerated. 1430 Dr. Burleson present, dc'd left pleural chest tube and pacing wires. rn dc'd right introducer. 1455 portable chest xray completed. 1510 updated [facility]en CCU RN on pt status. transferred pt per bed to CCU #209 with assistance of rn and Shabbir, Physical Therapy.
--- NOTE | 2019-07-05 14:38 | O ---
[facility] [place] [address] OPERATIVE REPORT Name: DELON ISRAEL Room #: 249-P ADM IN M.R.#: [id number] Admission: 07/01/19 Attend Phys: Roberto Carlos Downs MD Discharge: Date of : 51 Report #: [id number] THIS REPORT FOR: cc: Janelle Lester MD, Cora A. MD Forman, John M. MD ~ CC: Roberto Carlos Knutson DATE OF SERVICE: 07/03/2019 PREOPERATIVE DIAGNOSIS: Coronary artery disease. POSTOPERATIVE DIAGNOSIS: Coronary artery disease. OPERATION: Coronary artery bypass x 2 including left internal mammary artery to left anterior descending artery and saphenous vein to marginal and endoscopic harvest, left greater saphenous vein. SURGEON: Jamie Burleson MD PANTOGRAPHER: LANE Nazario. ANESTHESIA: General. INDICATIONS: The patient is a 68-year-old with coronary artery disease. The patient has unstable angina. The patient has a history of stent in the circumflex that has re-stenosed. FINDINGS AND TECHNIQUE: After general anesthesia was established, saphenous vein was harvested and prepared for use as a conduit. Endoscopic approach was used. Exposure was obtained through median sternotomy. Left internal mammary artery was harvested from chest wall. Pericardial well was made. Cannulation sutures were placed. Heparin was given. Aorta was cannulated. Right atrium was cannulated. Cardioplegia needle was positioned in the aortic root. Retrograde cardioplegic catheter was placed in coronary sinus. Cardiopulmonary bypass was established. Aorta was cross-clamped. Antegrade and retrograde cardioplegia were given. Ice was poured in the pericardial well and heart was stopped. During electromechanical arrest, the distal anastomoses were performed and end-to-side anastomosis was made between vein and the marginal artery. This was in a large intramyocardial vessel. Cold cardioplegia was given. Left internal mammary artery was sewn in end-to-side fashion to the left anterior descending [facility] [address] [place] [address] OPERATIVE REPORT Name: DELON ISRAEL Room #: 249-P [facility] IN ..#: [id number] Admission: 07/01/19 Attend Phys: Roberto Carlos Downs MD Discharge: Date of : 51 Report #: [id number]. Patency was checked with the temperature technique and the Doppler. Cold cardioplegia was given. One proximal anastomosis was performed. When this was complete, warm retrograde cardioplegia was given followed by warm continuous blood to the coronary sinus. When this infusion was complete, the crossclamp was removed, de-airing maneuvers were performed. The anastomoses were inspected and found to be satisfactory. As the patient warmed, nice cardiac activity resumed, chest tubes and pacing wires were placed, a marker was placed around the proximal anastomosis. When the patient was warmed, she was weaned from cardiopulmonary bypass. Venous cannula was removed. Protamine was given, the aortic cannula was removed. Flow was measured in the bypass grafts. When hemostasis was satisfactory, chest was irrigated with antibiotic solution and closed in the usual fashion. The patient was taken to the Intensive Care Unit in good condition, having tolerated the procedure well. All counts were reported as correct. <ELECTRONICALLY SIGNED> By: Jamie Burleson MD 07/05/19 1438 38 56 Jamie Burleson MD /nt
--- NOTE | 2019-07-05 15:26 | NUR ---
REC PT FROM ICU, IN HUMOROUS SPIRITS, NSR. THERAPY GETTING READY TO WALK WITH HER, PT COMPLIANT WITH STINTING W/PILLOW WITH MOVEMENTS. SEE SEPARATE INTERVENTIONS FOR ASSESSMENTS. ENCOURAGED PT TO USE CALL LIGHT FOR ANY NEEDS
--- NOTE | 2019-07-06 00:05 | NUR ---
Pt alert and oriented x4. Bp moderately elevated around 2100. Better now. Temp 100.4 oral. Enc. turning and use of IS W/A. Resp tx per RT. Denied need for pain meds. Chest dressing and left leg dressing in clean dry and intact. Pulses are easily palpable.
[2019-07-06 04:55] VITALS: BP 137/70
[2019-07-06 05:18] LABS: HEMATOCRIT 23.7 % (37.0-47.0); HEMOGLOBIN 7.6 gm/dL (12.0-15.0); MCH 23.4 pg (26.0-34.0); MCHC 32.2 g/dL (28.0-37.0); MCV 72.8 fL (80.0-100.0); RBC 3.26 mil/uL (4.20-5.00); RDW 15.9 % (10.5-14.5); WBC 10.4 thou/uL (4.0-11.0)
--- NOTE | 2019-07-06 06:10 | NUR ---
Pt progressing towards d/c goals. VSS, Afebrile this am. Enc. use of IS while she was awake. Lungs are clear and unlabored on 1Lnc. She c/o chest surgical site pain after moving from bed to bsc this am to void 8/10. Medicated with 2 hydrocodone . She appears to be sleeping presently. No s/s pain or distress presently. Scds on. Bed down low locked position with alarm on. Call light in reach. No drainage noted from chest dressing or left leg. Good pulses noted. Denied numbness or tingling to LE's.
[2019-07-06 08:20] VITALS: BP 112/55
[2019-07-06 12:00] VITALS: BP 120/56
--- NOTE | 2019-07-06 12:22 | EKG ---
[facility] [place] [address] [place] [address] ELECTROCARDIOGRAM REPORT Name: DELON ISRAEL Room #: 209-P ADM IN M.R.#: [id number] Admission: 07/01/19 Attend Phys: Roberto Carlos Downs MD Discharge: Date of : 51 Report #: [id number] THIS REPORT FOR: cc: Janelle Lester MD, Cora A. MD Lundgren,Pasquale Calle MD [facility] ~ THIS REPORT FOR: //name// [facility] ED Test Date: 2019-07-01 Test Time: 19:50:57 Pat Name: DELON ISRAEL Department: Room: [facility] Gender: F Larry Car Operator: RUPERT : 1950 Requested By: Alcira Saleh Order Number: [id number] MD: Pasquale Nogueira Measurements Intervals [place] Rate: 72 P: 38 [place]: 178 QRS: -5 QRSD: 88 T: 127 QT: 415 QTc: 455 Interpretive Statements Sinus rhythm Repol abnrm, severe global ischemia (LM/MVD) Compared to ECG 12/07/2018 07:39:47 ST segment abnormality is more pronounced Electronically Signed On 07-02-2019 9:35:33 CDT by Pasquale Nogueira [email or web address] <ELECTRONICALLY SIGNED> By: Pasquale Nogueira MD, FACC 07/02/19 0935 [birth year] Pasquale Nogueira MD, FAC /EPI
--- NOTE | 2019-07-06 12:26 | EKG ---
[facility] [place] [address] ELECTROCARDIOGRAM REPORT Name: DELON ISRAEL Room #: 209-P ADM IN M.R.#: [id number] Admission: 07/01/19 Attend Phys: Roberto Carlos Downs MD Discharge: Date of : 51 Report #: [id number] THIS REPORT FOR: cc: Janelle Lester MD, Cora A. MD Lundgren,Pasquale Calle MD [facility] ~ THIS REPORT FOR: //name// [facility] Test Date: 2019-07-03 Test Time: 14:23:16 Pat Name: DELON ISRAEL Department: Room: 249 P Gender: F Event Sales Assistant: Avelino LICONA : 1950 Requested By: Jamie Burleson Order Number: [id number] MD: Pasquale Nogueira Measurements Intervals [place] Rate: 98 P: 55 [place]: 149 QRS: 32 QRSD: 95 T: 96 QT: 423 QTc: 541 Interpretive Statements Sinus rhythm Early R wave progression Borderline repolarization abnormality Prolonged QT interval Compared to ECG 07/01/2019 19:50:57 Early R wave progression is now present QT interval has lengthened Electronically Signed On 07-03-2019 16:27:03 CDT by Pasquale Nogueira [email or web address] <ELECTRONICALLY SIGNED> By: Pasquale Nogueira MD, [facility] 07/03/19 1627 1423 1423 Pasquale Nogueira MD, [facility] /EPI
[2019-07-06 16:00] VITALS: BP 126/58
--- NOTE | 2019-07-06 16:27 | NUR ---
Pt is progressing toward dc goals. She is doing better with therapy. Dc home possible Tuesday or Tuesday. Should the pt need hh f/u please fax dc instructions and summary orders,history and physical and face sheet to the [facility] [phone] and call their oncall RN at [phone].
--- NOTE | 2019-07-06 18:21 | NUR ---
ASSUMMED PT CARE AT APPROXMIATELY 0700. PT A&O X4. ASSESSMENT CHARTED. FALL PRECAUTIONS IN PLACE. PT DENIES HAVING CHEST PAIN. PT STATED SHE WAS SOB. O2 SATS STABLE. PT RECIEVED BREATHING TX. PT STATED SOB RESOLVED. PT STATED SHE HAD NON-CARDIAC CHEST PAIN. PT RECIEVED ANALGESICS. PT STATED ANALGESICS HELPED RELIEVE PAIN. PT AND PT'S FAMILY EDUCATED ABOUT POC. PT AND PT'S FAMILY STATED UNDERSTANDING AND DENIED HAVING FURTHER QUESTIONS. INFORMED DR. VENTURA OF HGB. DR. VENUTRA STATED UNDERSTAND AND STATED NO NEW ORDERS. INFORMED DR. VENTURA THAT PT DID NOT NEED INSULIN COVERAGE, PT'S BLOOD SUGARS WERE STABLE, AND THAT THE PT WAS NOT DIABETIC. DR. VENTURA STATED UNDERSTANDING AND STATED HE WOULD DC THE ORDERS. VITAL SIGNS STABLE. BLOOD SUGARS STABLE. PT AMBULATED STEADY C PT. DRESSINGS C/D/I. PT COMFORTABLE. PT DENIES HAVING FURTHER CONCERNS.
[2019-07-06 21:11] VITALS: BP 145/55
[2019-07-07 04:45] VITALS: BP 155/71
--- NOTE | 2019-07-07 05:02 | NUR ---
ASSUMMED PT CARE AT 1900, PT IS AWAKE, A&OX4, DENIES SOB, COMPLAINED OF NON CARDIAC CHEST PAIN, PAIN MEDICATION GIVEN WITH COMPLETE RELIEF, SR ON THE MONITOR, ASESSMENTS CHARTED, VS STABLE, PT ON ROOM AIR, RESTING IN BED WITH NO DISTRESS NOTED, WILL CONTINUE TO MONITOR
[2019-07-07 05:57] LABS: HEMATOCRIT 24.5 % (37.0-47.0); HEMOGLOBIN 7.9 gm/dL (12.0-15.0); MCH 23.2 pg (26.0-34.0); MCHC 32.1 g/dL (28.0-37.0); MCV 72.5 fL (80.0-100.0); RBC 3.38 mil/uL (4.20-5.00); RDW 15.7 % (10.5-14.5)
[2019-07-07 05:59] LABS: CALCIUM 8.9 mg/dL (8.5-10.1); CREATININE 0.8 mg/dL (0.6-1.0); POTASSIUM 3.6 mmol/L (3.5-5.1)
[2019-07-07 08:00] VITALS: BP 165/77
[2019-07-07 12:10] VITALS: BP 145/70
[2019-07-07 16:35] VITALS: BP 156/65
--- NOTE | 2019-07-07 17:05 | NUR ---
ASSESSMENT CHARTED, VSS, AND NSR ON THE MONITOR. MEDICATED FOR MILD NON CARDIAC PAIN, SHOWERED AND DRESSING CHANGED. PATIENT WALKED X2 TODAY, AND TOLERATED WELL. AND WILL CONTINUE WITH POC
[2019-07-07 19:11] VITALS: BP 131/66
[2019-07-08 05:09] VITALS: BP 153/68
--- NOTE | 2019-07-08 05:59 | NUR ---
ASSUMED CARE OF PATIENT AT 1900. ASSESSMENT COMPLETED. TELE STRIPS PRINTED AND PLACED IN CHART. PATIENT DENIES ANY CHEST PAIN. PATIENT USING INCENTIVE SPIROMETER. PATIENT USING APPROPRIATE STERNAL PRECAUTIONS WITH TRANSFERRING. SR ON MONITOR. PATIENT ANTICIPATING DISCHARGE TODAY OR TOMORROW. CONTINUE WITH POC.
[2019-07-08 07:15] VITALS: BP 166/79
[2019-07-08] MEDS ORDERED: BENICAR40 MG PO (08:32)
[2019-07-08] MEDS ORDERED: NORVASC5 MG PO (08:32)
[2019-07-08 11:19] VITALS: BP 138/83
--- NOTE | 2019-07-08 13:04 | EKG ---
[facility] [place] [address] [place] [address] ELECTROCARDIOGRAM REPORT Name: DELON ISRAEL Room #: 209-P ADM IN M.R.#: [id number] Admission: 07/01/19 Attend Phys: Roberto Carlos Downs MD Discharge: Date of : 52 Report #: [id number] THIS REPORT FOR: cc: Janelle Lester MD, Cora A. MD Couchonnal, Luis F. 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
[2019-07-08 13:16] VITALS: BP 138/83
--- NOTE | 2019-07-08 14:28 | NUR ---
PT CARE ASSUMED APPROX 0700. ASSESSMENTS CHARTED. PT DENIES SOA. REPORTED INCISIONAL PAIN THIS AM. PT WAS RESOLVED WITH TYLENOL. VSS. UP WITH STEADY GAIT. PT APPROVED FOR DISCHARGE THIS MORNING. PT'S RIDE SHOULD BE HERE MOMENTARILY PER PT REPORT. DISCHARGE EDUCATION REVIEWED WITH PT. SHE DENIED QUESTIONS OR CONCERNS REGARDING [facility] CARES. PREETI DSG TO STERNUM C/D/I. POST MEDIALSTINAL TUBE SITES C/D/I. LLE HARVEST SITES C/D/I. IV OUT, TELE BOX OFF. WILL TRANSPORT PT OUT WHEN RIDE ARRIVES.
== END 2019-07-08 14:50 | disposition home or self-care (01) | DRG 233 ==
LOC: ER 19:43 → 2N 21:04 → ICU 21:04 → EROBS 21:04 → 2N 22:44 → ICU 22:59 → 2N 07-05 15:14
PROVIDERS: Hospitalist; Nurse Practitioner; Nurse Practitioner Family; Surgery Vascular Surgery; ADMIT Internal Medicine
PROC: 4A023N8 Measurement of Cardiac Sampling and Pressure, Bilateral, Percutaneous Approach (ICD-10-PCS; principal; 2019-07-02)
PROC: B2151ZZ Fluoroscopy of Left Heart using Low Osmolar Contrast (ICD-10-PCS; principal; 2019-07-02)
PROC: B2111ZZ Fluoroscopy of Multiple Coronary Arteries using Low Osmolar Contrast (ICD-10-PCS; principal; 2019-07-02)
PROC: 05HM33Z Insertion of Infusion Device into Right Internal Jugular Vein, Percutaneous Approach (ICD-10-PCS; 2019-07-03)
PROC: 021009W Bypass Coronary Artery, One Artery from Aorta with Autologous Venous Tissue, Open Approach (ICD-10-PCS; 2019-07-03)
PROC: 0210099 Bypass Coronary Artery, One Artery from Left Internal Mammary with Autologous Venous Tissue, Open Approach (ICD-10-PCS; 2019-07-03)
PROC: 06BQ4ZZ Excision of Left Saphenous Vein, Percutaneous Endoscopic Approach (ICD-10-PCS; 2019-07-03)
DX: I25.110 Atherosclerotic heart disease of native coronary artery with unstable angina pectoris (principal); I21.4 Non-ST elevation (NSTEMI) myocardial infarction; E11.9 Type 2 diabetes mellitus without complications; E87.6 Hypokalemia; E78.5 Hyperlipidemia, unspecified; I16.0 Hypertensive urgency; I10 Essential (primary) hypertension; K21.9 Gastro-esophageal reflux disease without esophagitis; E78.00 Pure hypercholesterolemia, unspecified; Z86.73 Personal history of transient ischemic attack (TIA), and cerebral infarction without residual deficits; Z79.82 Long term (current) use of aspirin; Z79.899 Other long term (current) drug therapy; Z95.5 Presence of coronary angioplasty implant and graft; Z83.6 Family history of other diseases of the respiratory system; Z91.14 Patient's other noncompliance with medication regimen
CPT/HCPCS: 10078; 10081; 27000; 47000; 47001; 47002; 47297; 48888; 50010; 50249; 50409; 50456; 50498; 50668; 51301; 52131; 52259; 52314; 53327; 53358; 54118; 56455; 56524; 56525; 56526; 56527; 56528; 56531; 56534; 56668; 56760; 56898; 57093; 57116; 57167; 62110; 62950; 65003; 65020; 65047; 65135

== ENCOUNTER → 2019-10-12 | Outpatient (CLI) | payer BC, OTHER ==
[~2019-10-12] MED LIST changes: +BENICAR40 MG PO; +IMDUR 30 MG TAB30 M1 PO; +NORVASC5 MG PO
== END ==
LOC: SJCVCIMAG 08:54
PROVIDERS: ATTEND Internal Medicine Cardiovascular Disease
DX: I08.3 Combined rheumatic disorders of mitral, aortic and tricuspid valves (principal); I25.810 Atherosclerosis of coronary artery bypass graft(s) without angina pectoris; Z86.73 Personal history of transient ischemic attack (TIA), and cerebral infarction without residual deficits; Z95.1 Presence of aortocoronary bypass graft

== ENCOUNTER → 2020-03-31 | Outpatient (CLI) | payer BC | LOC: SJCVCIMAG 08:37 | PROVIDERS: ATTEND Internal Medicine Cardiovascular Disease | DX: I25.10 Atherosclerotic heart disease of native coronary artery without angina pectoris (principal); R00.0 Tachycardia, unspecified; I49.3 Ventricular premature depolarization; I10 Essential (primary) hypertension; E78.5 Hyperlipidemia, unspecified; Z79.82 Long term (current) use of aspirin; Z79.899 Other long term (current) drug therapy ==

== ENCOUNTER → 2021-01-07 | Outpatient (CLI) | payer OTHER | LOC: SJCVCIMAG 01-06 11:00 | PROVIDERS: ATTEND Internal Medicine Cardiovascular Disease | DX: I08.1 Rheumatic disorders of both mitral and tricuspid valves (principal); I25.10 Atherosclerotic heart disease of native coronary artery without angina pectoris; I10 Essential (primary) hypertension; E78.00 Pure hypercholesterolemia, unspecified; K21.9 Gastro-esophageal reflux disease without esophagitis; E78.5 Hyperlipidemia, unspecified; I63.81 Other cerebral infarction due to occlusion or stenosis of small artery; Z79.82 Long term (current) use of aspirin; Z79.899 Other long term (current) drug therapy; Z95.5 Presence of coronary angioplasty implant and graft; Z86.73 Personal history of transient ischemic attack (TIA), and cerebral infarction without residual deficits ==